=== PATIENT | male | born 1995 | race Caucasian/White ===

== ENCOUNTER 2016-12-24 20:47 | Emergency (ER) | payer BC, OTHER ==
[2016-12-24 21:49] LABS: Hematocrit 48 % (42-52); Hemoglobin 16.3 g/dl (14.0-18.0); Mean Corpuscular HGB Conc 34 g/dl (31-36); Mean Corpuscular Hemoglobin 29 pg (27-31); Mean Corpuscular Volume 87 fL (80-94); Mean Platelet Volume 8 um3 (7.4-10.4); Red Blood Count 5.58 10^6/ul (4.0-5.4); Red Cell Distribution Width 13 % (10.5-15); White Blood Count 8.4 10^3/ul (3.5-10.8)
[2016-12-24 21:58] LABS: ALT 11 U/L (7-52); AST 18 U/L (13-39); Acetaminophen < 15 mcg/mL; Alcohol < 10 mg/dL (<10); Alkaline Phosphatase 60 U/L (34-104); Anion Gap 8 mmol/L (2-11); Blood Urea Nitrogen 10 mg/dL (6-24); CO2 Carbon Dioxide 26 mmol/L (22-32); Calcium 9.9 mg/dL (8.6-10.3); Chloride 105 mmol/L (101-111); EGFR African American 135.3 (>60); EGFR Non-African American 105.2 (>60); Globulin 2.7 g/dL (2-4); Glucose 94 mg/dL (70-100); Potassium 3.5 mmol/L (3.5-5.0); Salicylate < 2.50 mg/dL (<30); Sodium 139 mmol/L (133-145); Total Protein 7.7 g/dL (6.4-8.9)
[2016-12-24 22:08] LABS: TSH (Thyroid Stimulating Horm) 1.26 mcIU/mL (0.34-5.60)
--- NOTE | 2016-12-24 23:35 | ED ---
Psychiatric Complaint - HPI Summary HPI Summary: Patient arrives to ED with CC of suicidal ideations and depressive thoughts. Patient has never been treated for this and has had thoughts for "awhile" but will never act on them. Denies HI. Denies psychiatric history. Denies medication use. Notes to some alcohol use, but denies drugs or smoking. Patient does not have a plan, but states there have been many stressors recently which have caused him to have these feelings.Patient notes to some anxiety over the stressors in his life, but does not want any medication at this time. - History Of Current Complaint Chief Complaint: EDMentalHealth Time Seen by Provider: 12/24/16 20:59 Hx Obtained From: Patient Onset/Duration: Gradual Onset Timing: Intermittent Episode Lasting Severity Initially: Moderate Severity Currently: Moderate Character: Depressed Aggravating Factor(s): Recent Stress Alleviating Factor(s): Nothing Has Suicidal: Reports: Thoughts - Allergies/Home Medications Allergies/Adverse Reactions: Allergies Allergy/AdvReac Type Severity Reaction Status Date / Time No Known Drug Allergy Allergy Unverified 04/26/14 11:16 PMH/Surg Hx/FS Hx/Imm Hx Previously Healthy: Yes - Immunization History Date of Influenza Vaccine: unknown Infectious Disease History: No Infectious Disease History: Denies: Traveled Outside the [place] in Last 30 Days - Social History Occupation: Student Lives: Alone Alcohol Use: Weekly Alcohol Amount: Rum Hx Substance Use: No Substance Use Type: Reports: None Hx Tobacco Use: No Smoking Status (MU): Never Smoked Tobacco Do You Chew or Dip Tobacco: No Have You Chewed or Dipped Tobacco in the LAST YEAR: No Review of Systems Constitutional: Negative Eyes: Negative Cardiovascular: Negative Respiratory: Negative Musculoskeletal: Negative Skin: Negative Neurological: Negative Positive: Anxious, Depressed All Other Systems Reviewed And Are Negative: Yes Physical Exam Triage Information Reviewed: Yes Vital Signs On Initial Exam: Initial Vitals Temp Pulse Resp BP Pulse Ox 99.2 F 67 18 120/65 100 12/24/16 20:50 12/24/16 20:50 12/24/16 20:50 12/24/16 20:50 12/24/16 20:50 Appearance: Positive: Well-Appearing, No Pain Distress, Well-Nourished Skin: Positive: Warm, Skin Color Reflects Adequate Perfusion Head/Face: Positive: Normal Head/Face Inspection Eyes: Positive: EOMI, JOEL Neck: Positive: Supple, No Lymphadenopathy Respiratory/Lung Sounds: Positive: Breath Sounds Present Cardiovascular: Positive: Normal, RRR Musculoskeletal: Positive: Normal, Strength/ROM Intact Neurological: Positive: Normal, Sensory/Motor Intact, Alert, Oriented to Person Place, Time, Speech Normal AVPU Assessment: Alert - Rosi Coma Scale Coma Scale Total: 15 Diagnostics - Vital Signs Vital Signs Temp Pulse Resp BP Pulse Ox 12/24/16 22:54 99.5 F 65 16 120/75 99 12/24/16 20:50 99.2 F 67 18 120/65 100 - Laboratory Lab Results: Lab Results 12/24/16 12/24/16 Range/Units 21:34 21:34 WBC 8.4 (3.5-10.8) 10^3/ul RBC 5.58 H (4.0-5.4) 10^6/ul Hgb 16.3 (14.0-18.0) g/dl Hct 48 (42-52) % MCV 87 (80-94) fL MCH 29 (27-31) pg MCHC 34 (31-36) g/dl RDW 13 (10.5-15) % Plt Count 219 (150-450) 10^3/ul MPV 8 (7.4-10.4) um3 Neut % (Auto) 60.0 (38-83) % Lymph % (Auto) 30.4 (25-47) % [place] % (Auto) 7.0 (1-9) % Eos % (Auto) 1.8 (0-6) % Baso % (Auto) 0.8 (0-2) % Absolute Neuts (auto) 5.1 (1.5-7.7) 10^3/ul Absolute Lymphs (auto) 2.6 (1.0-4.8) 10^3/ul Absolute Monos (auto) 0.6 (0-0.8) 10^3/ul Absolute Eos (auto) 0.2 (0-0.6) 10^3/ul Absolute Basos (auto) 0.1 (0-0.2) 10^3/ul Absolute Nucleated RBC 0 10^3/ul Nucleated RBC % 0 Sodium 139 (133-145) mmol/L Potassium 3.5 (3.5-5.0) mmol/L Chloride 105 (101-111) mmol/L Carbon Dioxide 26 (22-32) mmol/L Anion Gap 8 (2-11) mmol/L BUN 10 (6-24) mg/dL Creatinine 0.91 (0.67-1.17) mg/dL Est GFR ( Amer) 135.3 (>60) Est GFR (Non-Af Amer) 105.2 (>60) BUN/Creatinine Ratio 11.0 (8-20) Glucose 94 (70-100) mg/dL Calcium 9.9 (8.6-10.3) mg/dL Total Bilirubin 1.20 H (0.2-1.0) mg/dL AST 18 (13-39) U/L ALT 11 (7-52) U/L Alkaline Phosphatase 60 (34-104) U/L Total Protein 7.7 (6.4-8.9) g/dL Albumin 5.0 (3.2-5.2) g/dL Globulin 2.7 (2-4) g/dL Albumin/Globulin Ratio 1.9 (1-3) TSH 1.26 (0.34-5.60) mcIU/mL Salicylates < 2.50 (<30) mg/dL Acetaminophen < 15 mcg/mL Serum Alcohol < 10 (<10) mg/dL Result Diagrams: 12/24/16 21:34 12/24/16 21:34 Lab Statement: Any lab studies that have been ordered have been reviewed, and results considered in the medical decision making process. Course/Dx - Course Course Of Treatment: Patient cleared for MHU. Lab work obtained. Patient in no acute distress or pain. Does not want medication for anxiety at this time. Feelings of SI/denies HI. No plan. Feeling improved since arrival in ED. Would like to speak with someone. MHU discharged with follow up plan as outpatient. - Differential Dx/Clinical Impression Differential Diagnosis/HQI/PQRI: Positive: Depression, Suicidal Ideation Provider Diagnosis: Depression, Suicidal ideation Discharge - Discharge Plan Condition: Stable Disposition: HOME Referrals: No Primary Care Phys,NOPCP [Primary Care Provider] -
[2016-12-25 00:18] VITALS: BP 122/68
== END 2016-12-25 00:24 | disposition home or self-care (01) ==
LOC: ED 20:47
DX: F32.9 Major depressive disorder, single episode, unspecified (principal); R45.851 Suicidal ideations
CPT/HCPCS: 36415; 80053; 80320; 80329; 84443; 85025; 99283; G0480

== ENCOUNTER → 2017-03-29 00:20 | Emergency (ER) | payer SELFPAY ==
--- NOTE | 2017-03-29 01:09 | ED ---
Psychiatric Complaint - HPI Summary HPI Summary: 21M presents with suicidal ideation today. He states his anxiety had been severe and he thought about suicide but he has no plan. He denies any previous admission for psychiatric reasons. He drinks occasionally but denies any drug use. He tried relaxation techniques for his anxiety. He does not take any medication for psych reasons. He was seen here a week ago. He sees a therapist. He has a family history of depression. - History Of Current Complaint Chief Complaint: EDMentalHealth Time Seen by Provider: 03/29/17 00:44 - Allergies/Home Medications Allergies/Adverse Reactions: Allergies Allergy/AdvReac Type Severity Reaction Status Date / Time No Known Drug Allergy Allergy Unknown Verified 03/20/17 17:22 Reaction Details PMH/Surg Hx/FS Hx/Imm Hx Endocrine/Hematology History: Denies: Hx Anticoagulant Therapy Respiratory History: Denies: Hx Asthma Psychiatric History: Denies: Hx Eating Disorder, Hx of Violent Episodes Against Others - Immunization History Date of Influenza Vaccine: unknown Infectious Disease History: Denies: Traveled Outside the [place] in Last 30 Days - Family History Known Family History: Positive: Other - Bipolar - Social History Alcohol Use: Weekly Alcohol Amount: Rum Hx Substance Use: No Substance Use Type: Reports: None Hx Tobacco Use: No Smoking Status (MU): Never Smoked Tobacco Review of Systems Negative: Fever Negative: Chest Pain Negative: Shortness Of Breath Positive: Anxious, Depressed All Other Systems Reviewed And Are Negative: Yes Physical Exam Triage Information Reviewed: Yes Vital Signs On Initial Exam: Initial Vitals Temp Pulse Resp BP Pulse Ox 97.9 F 72 18 138/78 100 03/29/17 00:21 03/29/17 00:21 03/29/17 00:21 03/29/17 00:21 03/29/17 00:21 Vital Signs Reviewed: Yes Appearance: Positive: Well-Appearing - anxious Skin: Positive: Warm, Dry Head/Face: Positive: Normal Head/Face Inspection Eyes: Positive: Normal, Conjunctiva Clear Respiratory/Lung Sounds: Positive: Clear to Auscultation, Breath Sounds Present Cardiovascular: Positive: Normal, RRR Abdomen Description: Positive: Nontender, Soft Bowel Sounds: Positive: Present Diagnostics - Vital Signs Vital Signs Temp Pulse Resp BP Pulse Ox 03/29/17 00:21 97.9 F 72 18 138/78 100 - Laboratory Result Diagrams: 03/29/17 01:03 03/29/17 01:03 Lab Statement: Any lab studies that have been ordered have been reviewed, and results considered in the medical decision making process. Course/Dx - Course Course Of Treatment: 21M presents with suicidial ideations today. He states he became more anxious today and that led to the sucidial thoughts that have since resolved. He denies having a plan. He denies any HI. He is not on any medication for psych. he is medically clear for MHE. signed out to dr duke pending [facility] for disposition. - Differential Dx/Clinical Impression Differential Diagnosis/HQI/PQRI: Positive: Anxiety, Depression, Suicidal Ideation Provider Diagnosis: Depression Discharge - Discharge Plan Condition: Stable Disposition: OTHER Discharge Disposition Comment: signed out to dr duke pending [facility]
[2017-03-29 01:21] LABS: Urine Bilirubin Negative (Negative); Urine Glucose Negative (Negative); Urine Nitrite Negative (Negative)
[2017-03-29 01:23] LABS: Hematocrit 45 % (42-52); Hemoglobin 15.2 g/dl (14.0-18.0); Mean Corpuscular HGB Conc 34 g/dl (31-36); Mean Corpuscular Hemoglobin 29 pg (27-31); Mean Corpuscular Volume 87 fL (80-94); Mean Platelet Volume 8 um3 (7.4-10.4); Red Blood Count 5.24 10^6/ul (4.0-5.4); Red Cell Distribution Width 13 % (10.5-15); White Blood Count 7.3 10^3/ul (3.5-10.8)
[2017-03-29 01:27] LABS: Benzodiazepine Urine Screen None Detected (None Detect)
[2017-03-29 01:46] VITALS: BP 109/77
[2017-03-29 01:47] LABS: ALT 9 U/L (7-52); AST 16 U/L (13-39); Albumin 4.7 g/dL (3.2-5.2); Alkaline Phosphatase 61 U/L (34-104); Anion Gap 5 mmol/L (2-11); BUN/Creatinine Ratio 16.9 (8-20); Blood Urea Nitrogen 15 mg/dL (6-24); CO2 Carbon Dioxide 28 mmol/L (22-32); Calcium 9.5 mg/dL (8.6-10.3); Chloride 104 mmol/L (101-111); EGFR African American 138.8 (>60); EGFR Non-African American 107.9 (>60); Globulin 2.3 g/dL (2-4); Glucose 83 mg/dL (70-100); Potassium 3.7 mmol/L (3.5-5.0); Sodium 137 mmol/L (133-145)
[2017-03-29 01:48] LABS: Acetaminophen < 15 mcg/mL; Alcohol < 10 mg/dL (<10); Salicylate < 2.50 mg/dL (<30)
[2017-03-29 01:57] LABS: TSH (Thyroid Stimulating Horm) 3.91 mcIU/mL (0.34-5.60)
== END ==
LOC: ED 00:20
DX: F41.9 Anxiety disorder, unspecified (principal); F32.9 Major depressive disorder, single episode, unspecified
CPT/HCPCS: 36415; 80053; 80307; 80320; 80329; 81003; 84443; 85025; 99283; G0480

== ENCOUNTER 2017-09-15 03:38 | Emergency (ER) | payer OTHER ==
[2017-09-15] MEDS ORDERED: Famotidine TAB* 20 MG PO ONE (04:43)
[2017-09-15] MEDS ORDERED: Al Hydrox/Mg Hydrox/Simet LIQ* 30 ML UDC PO ONE (04:43)
[2017-09-15] MEDS ORDERED: Lidocaine 2% VISCOUS* 15 ML UDC PO ONE (04:43)
[2017-09-15 05:07] VITALS: BP 118/84
--- NOTE | 2017-09-15 06:15 | ED ---
Sarah Roe Gabriel, scribed for Edward Spear MD on 09/15/17 at 0444 . Abdominal Pain/Male - HPI Summary HPI Summary: This patient is a 22 year old M presenting to [facility] with a chief complaint of ABD pain since tonight. Pt took ASA while he is on spirolactone. Pt took ASA for a headache. Pt is currently transitioning from a male to female. - History of Current Complaint Chief Complaint: EDAbdPain Stated Complaint: STOMACH PAINS Time Seen by Provider: 09/15/17 04:36 Hx Obtained From: Patient Onset/Duration: Sudden Onset, Still Present Timing: Constant Severity Currently: Moderate Pain Intensity: 0 Pain Scale Used: 0-10 Numeric - Allergies/Home Medications Allergies/Adverse Reactions: Allergies Allergy/AdvReac Type Severity Reaction Status Date / Time No Known Drug Allergy Allergy Unknown Verified 03/20/17 17:22 Reaction Details PMH/Surg Hx/FS Hx/Imm Hx Previously Healthy: No Endocrine/Hematology History: Denies: Hx Anticoagulant Therapy Respiratory History: Denies: Hx Asthma Psychiatric History: Denies: Hx Eating Disorder, Hx of Violent Episodes Against Others - Immunization History Date of Influenza Vaccine: unknown Infectious Disease History: No Infectious Disease History: Denies: Traveled Outside the [place] in Last 30 Days - Family History Known Family History: Positive: Other - Bipolar - Social History Alcohol Use: Occasionally Alcohol Amount: Rum Hx Substance Use: No Substance Use Type: Reports: None Hx Tobacco Use: No Smoking Status (MU): Never Smoked Tobacco Review of Systems Negative: Fever Positive: Abdominal Pain Negative: Slurred Speech All Other Systems Reviewed And Are Negative: Yes Physical Exam - Summary Physical Exam Summary: Appearance: Well appearing, no pain distress Skin: warm, dry, reflects adequate perfusion Head/face: normal Eyes: EOMI, JOEL ENT: normal Neck: supple, non-tender Respiratory: CTA, breath sounds present Cardiovascular: RRR, pulses symmetrical Abdomen: non-tender, soft Bowel: present Musculoskeletal: normal, strength/ROM intact Neuro: normal, sensory motor intact, A&Ox3 Triage Information Reviewed: Yes Vital Signs On Initial Exam: Initial Vitals Temp Pulse Resp BP Pulse Ox 97.9 F 75 18 143/63 98 09/15/17 03:41 09/15/17 03:41 09/15/17 03:41 09/15/17 03:41 09/15/17 03:41 Vital Signs Reviewed: Yes - [place] Coma Scale Coma Scale Total: 15 Diagnostics - Vital Signs Vital Signs Temp Pulse Resp BP Pulse Ox 09/15/17 03:41 97.9 F 75 18 143/63 98 - Laboratory Lab Statement: Any lab studies that have been ordered have been reviewed, and results considered in the medical decision making process. Abdominal Pain Fem Course/Dx - Course Course Of Treatment: Pt with mild epigastric discomfort after taking motrin -- now gone. Tx with Pepcid and GI cocktail. Tx with similar outpt. - Diagnoses Provider Diagnoses: Acute gastritis Discharge - Discharge Plan Condition: Good Disposition: HOME Prescriptions: Famotidine TAB* [Pepcid 20 MG TAB*] 20 mg PO BID PRN #20 tab PRN Reason: Pain - Abdominal Patient Education Materials: Gastritis (ED) Referrals: No Primary Care Phys,NOPCP [Primary Care Provider] - Additional Instructions: Return if vomiting blood, blood in stool, increased pain, worse or other concerns as discussed. Take Tums or Maalox for discomfort. Phys[facility] Referral [facility] pamphlet given to help you find a doctor. Follow up within 1wk The documentation as recorded by the Sarah serrano Gabriel accurately reflects the service I personally performed and the decisions made by me, Edward Spear MD.
== END 2017-09-15 05:09 | disposition home or self-care (01) ==
LOC: ED 03:38
DX: K29.70 Gastritis, unspecified, without bleeding (principal)
CPT/HCPCS: 99282; A9270-GY

== ENCOUNTER 2019-04-11 01:30 | Inpatient (IN) | payer OTHER ==
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
[2019-04-11] MEDS ORDERED: Ondansetron ODT TAB* 4 MG PO ONE (02:38)
[2019-04-11] MEDS ORDERED: LORazepam INJ* 2 MG/ML 1 ML VIAL IM ONE (02:40)
[2019-04-11] MEDS ORDERED: Lorazepam PYXIS KEY PRN (02:40)
[2019-04-11 02:56] LABS: ABS Basophils 0.1 10^3/ul (0-0.2); ABS Eosinophils 0.1 10^3/ul (0-0.6); ABS Lymphocytes 1.6 10^3/ul (1.0-4.8); ABS Monocytes 0.7 10^3/ul (0-0.8); ABS Neutrophils 8.5 10^3/ul (1.5-7.7); Eosinophil % 1.2 %; Hematocrit 41 % (42-52); Hemoglobin 14.1 g/dL (14.0-18.0); Lymphocyte % 14.7 %; Mean Corpuscular HGB Conc 34 g/dL (31-36); Mean Corpuscular Hemoglobin 30 pg (27-31); Mean Corpuscular Volume 87 fL (80-94); Platelet Count 251 10^3/uL (150-450); Red Blood Count 4.71 10^6 /uL (4.18-5.48); Red Cell Distribution Width 13 % (10-15)
[2019-04-11 03:14] LABS: Urine Appearance Clear; Urine Bilirubin Negative (Negative); Urine Blood Negative (Negative); Urine Color Straw; Urine Glucose Negative (Negative); Urine Ketones 1+ (Negative); Urine Nitrite Negative (Negative); Urine Protein Negative (Negative); Urine Specific Gravity 1.014 (1.010-1.030); Urine Urobilinogen Negative (Negative)
[2019-04-11 03:15] LABS: ALT 14 U/L (7-52); AST 16 U/L (13-39); Albumin 4.5 g/dL (3.2-5.2); Albumin/Globulin Ratio 1.7 (1-3); Alkaline Phosphatase 52 U/L (34-104); Anion Gap 12 mmol/L (2-11); BUN/Creatinine Ratio 20.5 (8-20); Blood Urea Nitrogen 17 mg/dL (6-24); CO2 Carbon Dioxide 21 mmol/L (22-32); Calcium 9.9 mg/dL (8.6-10.3); Chloride 105 mmol/L (101-111); EGFR African American 138.9 (>60); EGFR Non-African American 114.8 (>60); Globulin 2.7 g/dL (2-4); Glucose 114 mg/dL (70-100); Potassium 3.7 mmol/L (3.5-5.0); Sodium 138 mmol/L (135-145); Total Protein 7.2 g/dL (6.4-8.9)
[2019-04-11 03:20] LABS: Acetaminophen < 15 mcg/mL; Alcohol < 10 mg/dL (<10); Salicylate < 2.50 mg/dL (<30)
[2019-04-11 03:29] LABS: Urine Benzodiazepine Screen None Detected (None Detect); Urine Opiates Screen None Detected (None Detect)
[2019-04-11 03:36] LABS: TSH (Thyroid Stimulating Horm) 3.95 mcIU/mL (0.34-5.60)
--- NOTE | 2019-04-11 08:10 | ED ---
Progress - Progress Note Progress Note: Pt is a 23 y/o transgender M to F pending mental health unit acceptance. She prefers she/her pronouns, and presents to the ED with her girlfriend. She is here for suicidal thoughts with a plan to slit her wrists, and has hx of harming herself. Appearance: Well-appearing, no pain distress, well-nourished Skin: Warm, color reflects adequate perfusion, dry, no evidence of cutting or laceration Head: Normal Head/Face inspection, atraumatic Eyes: Conjunctiva clear ENT: Normal inspection Neck: Supple, no nodes, no JVD Respiratory: Lungs clear, normal breath sounds, no respiratory distress Cardio: RRR, No murmur, pulses normal, brisk capillary refill Abdomen: Soft, nontender Bowel sounds: Present Musculoskeletal: Strength Intact/ROM intact, no calf tenderness, no edema. Psychological: Depressed affect Neuro: Alert, muscle tone normal, no focal deficit Re-Evaluation - Re-Evaluation 1st re-eval Re-Evaluation Time: 08:11 Change: Unchanged Comment: Pt moved to [facility]. Course/Dx - Course Course Of Treatment: Pt is a 23 y/o transgender M to F pending mental health unit acceptance. She prefers she/her pronouns, and presents to the ED with her girlfriend. She is here for suicidal thoughts with a plan to slit her wrists, and has hx of harming herself. Pt is a voluntary admission. Pt to [facility] at 0811. - Diagnoses Provider Diagnoses: Adjustment disorder with depressed mood Discharge - Sign-Out/Discharge Documenting (check all that apply): Patient Departure, Receiving Sign-Out Receiving patient FROM: Chikis Stoll - Discharge Plan Condition: Stable [place] [place] Disposition and Condition Condition: STABLE [place] [facility] [place] Attestation Statements Document Initiated by Scribe: Yes Documenting Scribe: Klarissa Pimentel Provider For Whom Lorraine is Documenting (Include Credential): Dr. Chasity Woodard MD. Scribe Attestation: Klarissa Roe scribed for Dr. Chasity Woodard MD. on 04/12/19 at 0139. Scribe Documentation Reviewed: Yes Provider Attestation: The documentation as recorded by the leslyeibe, Klarissa Pimentel accurately reflects the service I personally performed and the decisions made by me, Dr. Chasity Woodard MD. Status of Scribe Document: Viewed
[2019-04-11] MEDS ORDERED: Acetaminophen TAB* 325 MG PO PRN (08:30)
[2019-04-11] MEDS ORDERED: Al Hydrox/Mg Hydrox/Simet LIQ* 30 ML UDC PO PRN (08:30)
[2019-04-11] MEDS: Vitamin THERAPEUTIC TAB PO SCH (09:20)
[2019-04-11] MEDS: Spironolactone TAB* 25 MG PO SCH ×2 (09:20→20:51)
[2019-04-11] MEDS: CMCS:Estradiol TAB(NF) 1 MG TAB PO SCH ×3 (09:21→20:49)
[2019-04-11] MEDS ORDERED: Melatonin 3 MG TAB PO PRN (14:25)
--- NOTE | 2019-04-11 16:00 | PN ---
BSU: Group Therapy Note - Service Type Service Type: [id number] Group Psychotherapy - Medication Education Group: Patient attended group and presented with flat affect that did not vary with discussion. Although responsive to direct prompts to respond to questions, patient did not engage in spontaneous conversation.
[2019-04-11] MEDS: PROGESTERONE MICRONIZED 200 MG PO SCH (17:50)
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
[2019-04-11] MEDS: Escitalopram * 5 MG TAB PO SCH (20:49)
[2019-04-12 07:06] LABS: HDL Cholesterol 52.2 mg/dL
[2019-04-12] MEDS: CMCS:Estradiol TAB(NF) 1 MG TAB PO SCH ×3 (09:04→21:08)
[2019-04-12] MEDS: Vitamin THERAPEUTIC TAB PO SCH (09:05)
[2019-04-12] MEDS: Spironolactone TAB* 25 MG PO SCH ×2 (09:05→21:07)
--- NOTE | 2019-04-12 11:35 | PN ---
BSU: Group Therapy Note - Service Type Service Type: 38915 Group Psychotherapy - Cognitive Behavioral Group Therapy ( CBT):Patient attended CBT programming this morning and presented with flat affect that did not vary with discussion. Although responsive to direct prompts to respond to questions, patient did not engage in spontaneous conversation.
--- NOTE | 2019-04-12 14:31 | PN ---
Subjective - Subjective Date of Service: 04/12/19 Service Type: 98639 Hosp care 15 min low complexity Subjective: Patient presents with improved mood and affect. She reports mild nausea last evening; denies other side effects from new medication (escitalopram). She reports improved sleep at the beginning of the night, woke frequently due to safety rounds. She reports having positive interactions with her girlfriend, Nasreen, who has been visiting. Patient inquires about discharge process and states agreement with tentative tomorrow morning. She states she has an already scheduled appt with therapist tomorrow at noon. She is agreeable to allow team to reach out to local psychiatric providers for follow up. Objective - General Observations Appearance: Well Groomed Stature: Thin Posture: WNL Eye Contact: Average Behavior/Activity: WNL - Interaction Observations Attitude Towards Examiner: Cooperative Stated Mood: Euthymic, Anxious Affect: Bright Speech Pattern/Tone: Clear, Appropriate, Normal Volume Thought Process: Coherent, Goal Directed Perception: WNL Thought Content: WNL Hallucination Type: Denies Delusion Type: Denies - Cognitive Function Orientation: A&O x 4 Level of Consciousness: Alert Cognition: WNL Estimated Intelligence: Normal Insight: WNL Judgment Within Normal Limits: Yes - Medication Compliance Cooperative with Inpatient Medication Regimen: Yes - Group Participation Participates in Group Activities: Yes Assessment - Assessment Merits Inpatient Hospitalization: For Immediate Safety, For Stabilization, For Discharge Planning Inpatient DSM-V Dx: F33.8 Clinical Impression: 23yo transgender [id number] who presented to ED with suicidal ideation and plan to cut her wrists in the context of conflict with her girlfriend. The patient endorses periodic depressive episodes and has been active in therapy for the past few years. She has consented to trial an SSRI. Patient merits hospitalization for immediate safety, stabilization and discharge planning. Plan - Plan Treatment Plan: Name: ANGIE MENESES Birthdate: 1995 [id number] continue acute intensive psychiatric treatment. may decrease to q30min and allow staff pass. continue current medications. discharge to include referral to outpatient psychiatric provider. Continued Medication Management: Start Medication Medications: Current Medications Acetaminophen (Tylenol Tab*) 650 mg PO Q4H PRN PRN Reason: PAIN or TEMP > 101 F Al Hydrox/Mg Hydrox/Simethicone (Maalox Plus*) 30 ml PO Q4H PRN PRN Reason: INDIGESTION Escitalopram Oxalate (Lexapro *) 5 mg PO BEDTIME CYNDI; Protocol Last Admin: 04/11/19 20:49 Dose: 5 mg Estradiol (Estradiol Tab(Nf)) 2 mg PO TID [facility] Last Admin: 04/12/19 09:04 Dose: 2 mg Melatonin (Melatonin) 3 mg PO BEDTIME PRN PRN Reason: SLEEP Miscellaneous (Ativan Pyxis Myers) 1 ea N/A .ATIVAN IV MYERS PRN PRN Reason: PYXIS MYERS Multivitamins (Theragran Tab*) 1 tab PO DAILY [facility] Last Admin: 04/12/19 09:05 Dose: 1 tab Progesterone (Progesterone Micronized(Nf)) 200 mg PO QPM [facility] Last Admin: 04/11/19 17:50 Dose: Not Given Spironolactone (Aldactone Tab*) 100 mg PO BID [facility] Last Admin: 04/12/19 09:05 Dose: 100 mg - Discharge Plan Discharge Plan: Inpatient Hospitalization
[2019-04-12] MEDS: PROGESTERONE MICRONIZED 200 MG PO SCH (17:38)
[2019-04-12] MEDS: Escitalopram * 5 MG TAB PO SCH (21:06)
[2019-04-13] MEDS: Spironolactone TAB* 25 MG PO SCH (10:09)
[2019-04-13] MEDS: Vitamin THERAPEUTIC TAB PO SCH (10:10)
[2019-04-13 10:37] VITALS: BP 114/61
[2019-04-13] MEDS: CMCS:Estradiol TAB(NF) 1 MG TAB PO SCH (10:48)
--- NOTE | 2019-04-13 18:04 | DS ---
CC: Sherly Travis DNP at [facility]; Jenny Cano at [email or web address] * DISCHARGE SUMMARY: DATE OF ADMISSION: 04/11/19 DATE OF DISCHARGE: 04/13/19 ATTENDING PROVIDER: Danny Gilmore MD* (DICTATED BY HENOK EDMONDS NP) DISCHARGE DIAGNOSES: 1. Unspecified depressive disorder. 2. Consider borderline personality disorder. CONDITION AT THE TIME OF DISCHARGE: Improved. The patient is euthymic with bright affect. She denies suicidal ideation. She has been safe on all checks. She is decreased to 30-minute observation and allowed staff pass. The patient has been in behavioral control. She presents as euthymic which is a much improvement from initial presentation. ADLs are completed. She reports improved sleep. She reports desire to be discharged and to follow up with her already scheduled appointment today at noon. The patient is discharged to home. MENTAL STATUS EXAM: A 23-year-old white uhxv-me-hfhlho transgender, who appears stated age, thin framed, well groomed, casually dressed in her own clothing. She has erect posture and is alert and oriented x3. Eye contact is good. Speech is soft, articulate, and spontaneous. Concentration is good. Memory is 3/3. Mood is euthymic with bright affect. No abnormal psychomotor activity noted. Thought process is logical, coherent, and goal directed. Thought content is negative for SI, passive wish. She denies HI or . She denies auditory or visual hallucinations. There are no perceptual disturbances noted. Insight and judgment are good. Fund of knowledge is excellent. INSTRUCTIONS GIVEN TO THE PATIENT: A. Medications: 1. Escitalopram 10 mg p.o. daily. This was electronically prescribed to [facility]. 2. She may utilize OTC melatonin p.r.n. insomnia. B. Diet: Regular. C: Activity: Ambulation as tolerated. Tobacco cessation is not applicable. There are no pending labs or diagnostic studies. D. Followup care. The patient will continue outpatient therapy with Jenny Cano. She was referred to Sherly Travis DNP, for psychiatric medication management and she will [facility] with [facility]. E. Substance use followup is not applicable. HOSPITAL COURSE: Part A. Reason for admission: The patient presented to the emergency department due to suicidal ideation with a plan to exsanguinate by cutting her wrists. Chief Complaint: "I want to kill myself." HPI: Stacey is a 23-year-old, transgender, male to female, , domiciled, employed, who presented to the emergency department with complaints of suicidal ideation and a plan to exsanguinate by cutting her wrists. Upon presentation, the patient is lying in bed, dysphoric but cooperative with interview. She reports she has been feeling depressed "a lot" but cannot quantify for how long. She endorses periods of depression, including depressed mood, sporadic suicidal ideation, decreased energy and motivation. She reports poor sleep and that it is frequently interrupted. She endorses anxiety in the form of panic attacks. This results in feeling frozen, tremulous, and her speech is stuttered. She states she also acts out when angry by either hitting inanimate objects or herself. She reports a history of cutting but has not done so for 10 years. 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 She reports dating her current girlfriend since of last year. They had a discussion about their relationship on Tuesday, the day before admission, wherein her girlfriend told things that Stacey needs to do better. The patient identifies she has been asked to pay more attention to her girlfriend including her interests more so and working on anger management. The patient reports being easily frustrated especially when she makes mistakes at work. She endorses rumination about making mistakes as well as fear of letting people down and people being mad at her. With further enquiry, she denies evidence of people being upset with her. Stacey endorses difficulty with boundary setting in relationships. She denies periods of paul or hypomania. She denies a history of HI or . She denies current HI or . She denies a history of eating disorders, obsessions, or compulsions. Part B. Psychiatric treatment rendered: The patient was admitted to adult behavioral services unit on voluntary status. Code status is full. She was placed on 15-minute checks for safety and this was decreased to 30-minute observation after a full day of participating in milieu, individual sessions with staff and psychoeducational groups. The patient consented to start escitalopram and she utilized melatonin for sleep as she had taken this in the past with good effect. Laboratory data: CBC: WBC 11.0, hematocrit 41, absolute neutrophils 8.5. Chemistry: Grossly unremarkable. BUN and creatinine ratio 20.5. TSH normal at 3.95. Urinalysis: 1+ ketones. Toxicology: Negative for salicylates, acetaminophen, or alcohol. Urine drug screen is negative. Hemoglobin A1c and lipid panel were within normal limits. The patient reported slight nausea with onset of escitalopram and identified that this is likely tolerable and temporary side effect. She reported receiving a visit from her girlfriend and that this was encouraging for the relationship. The patient denied suicidal ideation throughout her stay. She was able to participate in safety planning and completed her ADLs. She reported feeling better in regards to depression, endorsed some social anxiety that was a barrier to attending some groups. The patient reported desire to be discharged due to obligation to treat in restrictive setting. The patient was discharged with followup and prescriptions. HENOK EDMONDS, LUCIAN [id number]/CPS #: [id number] JENNA
== END 2019-04-13 11:15 | disposition home or self-care (01) | DRG 754 ==
LOC: ED 01:30 → BSU 08:05
PROVIDERS: ADMIT Psychiatry & Neurology Psychiatry; ATTEND Psychiatry & Neurology Psychiatry
PROC: GZHZZZZ Group Psychotherapy (ICD-10-PCS; principal; 2019-04-11)
DX: F32.9 Major depressive disorder, single episode, unspecified (principal); R45.851 Suicidal ideations; F60.3 Borderline personality disorder; R11.0 Nausea; T43.225A Adverse effect of selective serotonin reuptake inhibitors, initial encounter; F41.8 Other specified anxiety disorders; Z62.810 Personal history of physical and sexual abuse in childhood; Z81.8 Family history of other mental and behavioral disorders; Z72.89 Other problems related to lifestyle; Z56.0 Unemployment, unspecified; Y92.9 Unspecified place or not applicable
CPT/HCPCS: 36415; 80053; 80061; 80307; 80320; 80329; 81003; 83036; 84443; 85025; 90853; 93005; 99222; 99231; 99238; 99285; A9270-GY; G0480; J2060